=== PATIENT | male | born 1980 | race Caucasian/White ===

== ENCOUNTER 2017-08-09 22:14 | Emergency (ER) | payer OTHER ==
[~2017-08-09] VITALS: Ht 193 cm; Wt 148.8 kg
[2017-08-09] MEDS ORDERED: MORPHINE SULFATE 2 MG/ML SYR IV STA (22:21)
[2017-08-09] MEDS ORDERED: ONDANSETRON HCL INJ 2 MG/ML VIAL IV STA (22:21)
[2017-08-09] MEDS ORDERED: PANTOPRAZOLE 40 MG 10ML VIAL IV STA (22:21)
[2017-08-09] MEDS ORDERED: DICYCLOMINE HCL 20 MG/2 ML VIAL IM ONE (22:30)
[2017-08-09 22:53] LABS: BASOPHILS # (AUTO) 0.1 (0.0-0.1); BASOPHILS % 0.7 % (0.0-1.0); EOSINOPHILS # (AUTO) 0.2 (0.0-0.4); EOSINOPHILS % 1.9 % (0.0-6.0); HEMATOCRIT 43.2 % (38.2-49.6); HEMOGLOBIN 13.7 g/dL (14.0-18.0); LYMPHOCYTES # (AUTO) 2.5 (1.0-3.2); LYMPHOCYTES % 27.6 % (18.0-39.1); MEAN CORPUSCULAR HEMOGLOBIN 24.8 pg (28-32); MEAN CORPUSCULAR HGB CONC 31.7 g/dL (31-35); MEAN CORPUSCULAR VOLUME 78.3 fL (81-99); MONOCYTES # (AUTO) 0.7 (0.2-0.8); MONOCYTES % 7.6 % (4.4-11.3); NEUTROPHILS # (AUTO) 5.6 (2.1-6.9); NEUTROPHILS % 61.5 % (38.7-80.0); PLATELET COUNT 251 x10e3/uL (140-360); RED BLOOD COUNT 5.52 x10e6/uL (4.3-5.7); RED CELL DISTRIBUTION WIDTH 13.9 % (11.7-14.4)
[2017-08-09 23:11] LABS: ALANINE AMINOTRANSFERASE 28 IU/L (0-55); ALBUMIN 4.1 g/dL (3.5-5.0); ALBUMIN/GLOBULIN RATIO 1.1 (0.8-2.0); ALKALINE PHOSPHATASE 62 IU/L (40-150); AMYLASE 65 U/L (25-125); ANION GAP 10.8 mmol/L (8-16); BLOOD UREA NITROGEN 14 mg/dL (7-26); BUN/CREATININE RATIO 13 (6-25); CARBON DIOXIDE 30 mmol/L (22-29); CHLORIDE 102 mmol/L (98-107); CREATINE KINASE 136 IU/L (30-200); CREATININE, SERUM 1.04 mg/dL (0.72-1.25); EST GLOMERULAR FILTRATION RATE > 60 ML/MIN (60-); GLUCOSE 118 mg/dL (74-118); LIPASE 47 U/L (8-78); POTASSIUM 3.8 mmol/L (3.5-5.1); SODIUM 139 mmol/L (136-145)
[2017-08-09 23:11] LABS: BILIRUBIN,URINE NEGATIVE (NEGATIVE); KETONES,URINE NEGATIVE (NEGATIVE); LEUKOCYTE ESTERASE ,URINE NEGATIVE (NEGATIVE); NITRITE,URINE NEGATIVE (NEGATIVE); URINE UROBILINOGEN 1 mg/dL (0.2 - 1)
[2017-08-09 23:17] LABS: CLARITY,URINE CLEAR (CLEAR); COLOR,URINE YELLOW (YELLOW); PROTEIN,URINE DIPSTICK 1+ (NEGATIVE)
[2017-08-09 23:18] LABS: TROPONIN I 0.009 ng/mL (0-0.300)
[2017-08-09 23:23] LABS: EPITHELIAL CELLS,URINE FEW /LPF; HYALINE CASTS 0-1 (0-1); MUCUS,URINE MODERATE (RARE); RBC,URINE 0-5 /HPF (0-5); WBC,URINE (MAN) 0-5 /HPF (0-5)
--- NOTE | 2017-08-10 00:04 | Diagnostic Imaging Report ---
EXAM: US GALLBLADDER DATE: 08/09/2017 12:00 AM INDICATION: Right upper quadrant pain, COMPARISON: None TECHNIQUE: Transverse and longitudinal whitman scale and color doppler sonographic images of the upper abdomen were obtained. FINDINGS: LIVER 18.6 cm in the right midclavicular line, mildly enlarged. Increased echogenicity, normal contour, no masses. GALLBLADDER Mobile layering non-shadowing stones or sludge. Mild gallbladder wall thickening measuring up to 5 mm. No pericholecystic fluid. Negative sonographic Stephens's sign. BILE DUCTS No intra nor extra-hepatic biliary dilation. Common bile duct measures 0.5 cm PANCREAS: Suboptimally assessed due to overlying bowel gas and body habitus. RIGHT KIDNEY: 12.9 cm Echogenicity: Normal Collecting System: No hydronephrosis Stones: None Cyst/Mass: None VESSELS: Aorta: Visualized portions are within normal size limits Inferior Vena Cava: Visualized portions are normal Main Portal Vein: 1.1 cm, with hepatopetal flow. FREE FLUID: None IMPRESSION: 1. Cholelithiasis/sludge with gallbladder wall thickening, but no pericholecystic fluid or Stephens's sign. Overall findings are indeterminate. If there is ongoing clinical concern for acute cholecystitis, consider HIDA. 2. Hepatomegaly with hepatic steatosis. Signed by: Dr Tila Morris MD on 08/10/2017 12:00 AM
--- NOTE | 2017-08-10 00:40 | Diagnostic Imaging Report ---
CHEST SINGLE (PORTABLE), 08/09/2017 10:21 PM Technique: CHEST SINGLE (PORTABLE) Comparison: None available. Clinical history: Right-sided chest pain Findings: Limited by portable technique and soft tissue attenuation. Impression: 1. Slight enlargement of the cardiomediastinal silhouette, likely accentuated by portable technique. 2. No consolidation or edema. 3. No effusion or pneumothorax. Artifact over the right lower lateral chest wall/hemithorax. Signed by: Dr Tila Morris MD on 08/10/2017 12:37 AM
== END 2017-08-10 00:55 | disposition home or self-care (01) ==
LOC: ER 22:14
DX: R10.11 Right upper quadrant pain (principal); K80.70 Calculus of gallbladder and bile duct without cholecystitis without obstruction
CPT/HCPCS: 36415; 71010; 76705; 80053; 81001; 82150; 82550; 82553; 83690; 84484; 85025; 96372; 96374; 96375; 99284; J0500; J2270; J2405